=== PATIENT | male | born 1995 | race Caucasian/White ===

== ENCOUNTER 2018-10-23 22:48 | Emergency (ER) | payer MEDICAID, OTHER ==
[2018-10-23] MEDS ORDERED: fentaNYL 100 MCG/2 ML SDV IVPUSH ONE (22:49)
--- NOTE | 2018-10-23 22:58 | EDM.PDOC ---
ED HPI GENERAL MEDICAL PROBLEM - General Stated Complaint: RIGHT ANKLE INJURY Time Seen by Provider: 10/23/18 22:50 Source of Information: Reports: Patient History Limitations: Reports: No Limitations - History of Present Illness INITIAL COMMENTS - FREE TEXT/NARRATIVE: 23-year-old male jumped off a 4 [place] injuring his right ankle. It's deformed and he is unable to bear weight, he has an abrasion on the medial aspect of the ankle. No other injury. Onset: Sudden Duration: Hour(s): (Within the last hour) Location: Reports: Upper Extremity, Right Worsens with: Reports: Other (Weightbearing), Movement Associated Symptoms: Reports: No Other Symptoms - Related Data Allergies Allergy/AdvReac Type Severity Reaction Status Date / Time amoxicillin Allergy Hives Verified 10/23/18 22:59 Home Meds: Home Meds NK [No Known Home Meds] 10/23/18 [History] Review of Systems - Review of Systems Review Of Systems: See Below Constitutional: Denies: Fever Respiratory: Denies: Shortness of Breath Cardiovascular: Denies: Chest Pain GI/Abdominal: Denies: Abdominal Pain, Nausea, Vomiting Skin: Reports: Other (Abrasion is present on the medial aspect of the ankle) Neurological: Reports: No Symptoms. Denies: Paresthesia ED EXAM, GENERAL - Physical Exam Exam: See Below Exam Limited By: No Limitations General Appearance: Alert, Mild Distress (Fairly uncomfortable) Respiratory/Chest: No Respiratory Distress, Lungs Clear Cardiovascular: Regular Rate, Rhythm Extremities: Other (Exam is otherwise limited to the right lower extremity. There is obvious deformity of the ankle with lateral displacement of the foot, with abrasions on the medial ankle) Course - Vital Signs Last Recorded V/S: Last Vital Signs Temp 97.7 F 10/23/18 23:05 Pulse 87 10/23/18 23:05 Resp 14 10/23/18 23:05 BP 134/69 10/23/18 23:05 Pulse Ox 99 10/23/18 23:05 - Orders/Labs/Meds Meds: Medications Discontinued Medications Generic Name Dose Route Start Last Admin Trade Name Freq PRN Reason Stop Dose Admin Fentanyl 50 mcg 10/23/18 22:49 10/23/18 23:08 Sublimaze IVPUSH 10/23/18 22:50 50 mcg ONETIME ONE Administration Propofol Confirm 10/23/18 23:50 Diprivan 20 Ml Administered 10/23/18 23:51 Dose 400 mg .ROUTE .[facility] - Re-Assessments/Exams Free Text/Narrative Re-Assessment/Exam: 10/23/18 23:58 Under propofol sedation, the abrasion was cleaned and a nonstick dressing was placed over the abrasion. Counter reduction was done to reduce the fracture and dislocation. A posterior Ortho-Glass splint, 24 inches, was applied to the lower leg. He was fitted for crutches and was given 15 hydrocodone for extra pain control. He should return for orthopedic consultation on Thursday. Postreduction x-ray was done which shows near anatomic reduction of the medial malleolus, fibular alignment is much better. Departure - Departure Time of Disposition: 00:36 Disposition: Home, Self-Care 01 Condition: Good Clinical Impression: Closed fracture dislocation of right ankle Qualifiers: Encounter type: initial encounter Qualified Code(s): S82.891A - Other fracture of right lower leg, initial encounter for closed fracture - Discharge Information Instructions: Ankle Fracture, [id number] Referrals: Dominic Kee MD [Primary Care Provider] - Forms: ED Department Discharge Care Plan Goals: Use crutches and elevate foot until recheck on Thursday. Ibuprofen will help with pain, add stronger pain medication if needed.
[2018-10-23] MEDS ORDERED: Propofol 200 MG/20 ML SDV ONE (23:50)
--- NOTE | 2018-10-23 23:52 | CRLCR ---
HISTORY: Ankle injury. TECHNIQUE: Right ankle 2 views. COMPARISON: None. FINDINGS: Acute fracture of the distal fibular shaft with apex medial and anterior angulation and mild anterolateral displacement. Acute displaced fracture of the medial malleolus. Talus is subluxed laterally. Soft tissue swelling around the ankle. IMPRESSION: 1. Acute angulated and mildly displaced fracture of the distal fibular shaft. 2. Acute displaced fracture of the medial malleolus. 3. Lateral subluxation of the talus. Dictated by Mario Daugherty MD @ Oct 23 2018 11:47PM Signed by Dr. Mario Daugherty @ Oct 23 2018 11:50PM
--- NOTE | 2018-10-24 00:15 | CRLCR ---
INDICATION: Post reduction TECHNIQUE: Views right ankle 11:43 p.m. COMPARISON: Previous junction views 11:10 p.m. FINDINGS: Bones: Displaced fracture distal shaft of the fibula with improved alignment compared to previous junction views. Medial malleoli fracture with improved alignment compared to prior study. Joint spaces: Persistent widening of the medial ankle joint space. Soft tissues: Unremarkable. IMPRESSION: Fractures of the distal shaft of the fibula and medial malleoli with improved alignment compared to previous junction views. Persistent widening of the medial ankle joint space. Dictated by Dominic Parsons MD @ 10/24/2018 12:13:57 AM Dictated by: Dominic Parsons MD @ 10/24/2018 00:14:05 (Electronically Signed)
== END 2018-10-24 00:38 | disposition home or self-care (01) ==
LOC: JP.ED 22:48
DX: S82.401A Unspecified fracture of shaft of right fibula, initial encounter for closed fracture (principal); S82.51XA Displaced fracture of medial malleolus of right tibia, initial encounter for closed fracture; Z88.1 Allergy status to other antibiotic agents; W17.89XA Other fall from one level to another, initial encounter
CPT/HCPCS: 27781; 27842; 73600; 96374; 99152; 99153; 99283; J2704; J3010

== ENCOUNTER 2018-11-01 06:34 | Day surgery (SDC) | payer OTHER ==
[2018-11-01] MEDS ORDERED: Bupivacaine 0.5% 30 ML SDV ONE (06:39)
[2018-11-01] MEDS ORDERED: Nozin Nasal Sanitizer NASBOTH ONE (07:00)
[2018-11-01] MEDS ORDERED: Lactated Ringers 1,000 ML IV SCH (07:00)
[2018-11-01] MEDS ORDERED: Propofol 200 MG/20 ML SDV ONE ×2 (07:15→07:54)
[2018-11-01] MEDS ORDERED: Ondansetron 4 MG/2 ML SDV ONE (07:15)
[2018-11-01] MEDS ORDERED: fentaNYL 250 MCG/5 ML SDV ONE ×2 (07:15→07:58)
[2018-11-01] MEDS ORDERED: Dexamethasone 4 MG/ML SDV ONE (07:15)
[2018-11-01] MEDS ORDERED: Clindamycin Phosphate 900 MG in Sodium Chloride 0.9% 100 ML IV ONE (07:30)
[2018-11-01] MEDS ORDERED: Ketorolac 60 MG/2 ML SDV IM ONE (09:30)
[2018-11-01] MEDS ORDERED: Acetaminophen/oxyCODONE 325-5 MG Tab PO PRN (10:07)
--- NOTE | 2018-11-01 10:30 | CR ---
Fluoro Over 1Hr wo Rad CLINICAL HISTORY: Open reduction ankle fracture FINDINGS: A single fluoroscopy spot film was obtained intraoperatively for the orthopedic surgeon showing fixation plate on the distal fibula and fixation screws through the medial malleolus. There is slight asymmetry in the ankle mortise. This may be positional IMPRESSION: Intraoperative film as above
--- NOTE | 2018-11-01 17:38 | OR ---
DATE OF PROCEDURE: 11/01/2018 PREOPERATIVE DIAGNOSES: Dislocation of right ankle with bimalleolar fracture. POSTOPERATIVE DIAGNOSES: Dislocation of right ankle with bimalleolar fracture. PROCEDURE PERFORMED: Open reduction and internal fixation of bimalleolar fracture, right ankle. ANESTHESIA: General. INDICATIONS: Guillermo is a 23-year-old male who sustained an injury to his ankle little over a week ago. On 10/23/2018, he jumped from a four-espinoza landing on his right ankle sustaining a dislocation. He underwent closed reduction in the emergency room and splinting. He was seen in the [facility]opedic [facility] and was found to have significant swelling and blisters as well as thinned skin over the medial malleolus from the dislocation. He was placed back into a splint and given more time to reduce swelling. He was brought to the operating room today for open reduction and internal fixation. Risks, benefits, and potential complications were discussed. DESCRIPTION OF PROCEDURE: After evaluation of the swelling in the preoperative area, it was determined that surgery was okay to proceed with without risk of significant wound healing difficulties. He was taken back to the operating room and after adequate anesthesia and administration of preoperative antibiotics, the splint was removed. Right leg was then prepped and draped in a sterile fashion. Leg was exsanguinated and tourniquet inflated to 300 mmHg pressure. A longitudinal incision was made over the lateral aspect of the ankle and carried directly down to the fibula. Fracture was identified. Soft tissues were cleared from the fracture site. Very mild comminution was present with one free piece of cortical bone. A bone clamp was placed on the distal fragment and used to place traction and manipulate the fracture into position. A precontoured Synthes lateral plate was utilized. This was initially secured to the distal fragment with 3 locking screws in the lateral malleolus. This was then aligned with the shaft above the fracture. The small fragment was positioned into the defect and a clamp utilized to hold position while a 3.5 mm cortical screw was placed above the fracture site and used to further reduce the fracture. This was confirmed using fluoroscopy. Two additional cortical screws were placed above the fracture site. Excellent purchase was obtained with these. An additional 3.5 cortical screw was placed below the fracture site with good purchase. Final position was again checked with fluoroscopy. Incision was medially avoiding the areas of fracture blister and abrasion. It was carried down through the subcutaneous tissue. A large flap of periosteum was trapped in the fracture site and this was removed and allowed visualization of the fracture. Clamp was then used to reduce the medial malleolus. Two 4.0 mm partially expanded cancellus screws were then placed across the fracture site compressing it in place. Final position was confirmed using fluoroscopy. Wounds were then irrigated. Fascia was then closed with #1 Vicryl. Skin was closed with 2-0 Vicryl and a running 3-0 Monocryl. Steri-strips were applied. Wounds were then infiltrated with 0.5% Marcaine. Xeroform guaze was placed over the incisions and the areas of blister. A well-padded AO splint was then applied with the foot in neutral position. The patient tolerated the procedure very well. There were no complications, and he was taken from the operating room in a stable condition. Gamal Rios MD /[id number]
== END 2018-11-01 12:10 | disposition home or self-care (01) ==
LOC: JP.SDS 06:34
PROVIDERS: ATTEND Specialist
DX: S82.841A Displaced bimalleolar fracture of right lower leg, initial encounter for closed fracture (principal); F17.210 Nicotine dependence, cigarettes, uncomplicated; W17.89XA Other fall from one level to another, initial encounter; Z88.0 Allergy status to penicillin
CPT/HCPCS: 27814; A9270; C1713; C1776; J1100; J1885; J2405; J2704; J3010; J3490; J7030; J7120